=== PATIENT | male | born 1970 | race Caucasian/White ===

== ENCOUNTER 2019-01-11 16:24 | Emergency (ER) | payer OTHER ==
[2019-01-11 16:29] VITALS: BP 142/99; PULSE 98; TEMP 98.2; BMI 25.8
[2019-01-11] MEDS ORDERED: DIPHTH,PERTUSS(ACELL),TET 0.5 ML DISP.SYRIN IM ONE ×2 (17:12→17:56)
--- NOTE | 2019-01-11 17:59 | PDOC ---
History of Present Illness - General Chief Complaint: Laceration Stated Complaint: INJURY Time Seen by Provider: 01/11/19 16:46 History Source: Patient (L knee laceration) Exam Limitations: No Limitations - History of Present Illness Location: reports: extremities (R lateral knee) Past History - Travel Close contact w/someone who was outside of country & ill: No - Past Medical History Allergies/Adverse Reactions: Allergies Allergy/AdvReac Type Severity Reaction Status Date / Time No Known Allergies Allergy Verified 01/11/19 16:27 Home Medications: Ambulatory Orders Cephalexin Monohydrate [Keflex -] 500 mg PO BID 7 Days #14 capsule 01/11/19 COPD: No - Immunization History Immunization Up to Date: Yes - Psycho Social/Smoking Cessation Hx Smoking History: Never smoked Review of Systems - Review of Systems Constitutional: No: Chills, Fever Integumentary: Yes: Other (laceration to lateral left knee) *Physical Exam - Vital Signs Last Vital Signs Temp Pulse Resp BP Pulse Ox 98.2 F 98 H 18 142/99 98 01/11/19 16:28 01/11/19 16:28 01/11/19 16:28 01/11/19 16:28 01/11/19 16:28 - Physical Exam Comments: 01/11/19 18:09 48 years old male with lateral right knee laceration sustained while using a key sander fixing the floors this this afternoon. Patient is unsure of last tetanus he denies any medical problems. On examination there is a 4 cm laceration in the lateral aspect of right knee he has full range of motion. Wound explore there is no sign of tendon involvement there is no foreign body there is no active bleeding his sensation is intact his distal pulses intact. Laceration closed with 4.0 nylon stitiches, 9 interuppted stitches was placed abx sent to pharmacy tetanus updated General Appearance: Yes: Nourished, Appropriately Dressed Respiratory/Chest: positive: Lungs Clear, Normal Breath Sounds Cardiovascular: positive: Regular Rhythm, Regular Rate, S1, S2 Extremity: positive: Normal Capillary Refill, Normal Range of Motion, Other (R knee: + 4cm linear lacaeration noted in lateral knee, FROM, no evidence of tendon involvment, stable gait, distal pulse and sensation intact. 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 NML intact, Fully Oriented, Alert, Normal Mood/ Affect, Normal Response, Motor Strength 5/5 Procedures - Laceration/Wound Repair Right Lower Lateral Knee Wound Length: 2.6 to 5.0 cm Wound Explored: clean, no foreign body present Wound's Depth, Shape: superficial Irrigated w/ Saline: Yes Betadine Prep: Yes Anesthesia: 2% Lidocaine Wound Repaired With: Sutures Number of Sutures: 9 Deep Layer Suture Size/Type: 4:0 Sterile Dressing Applied: Yes Splint Applied: No Medical Decision Making - Medical Decision Making 01/11/19 17:55 R lateral knee laceration sustained while fixing floors 4cm linear lac unsure of tetanus lac repaired abx 01/11/19 18:14 Discharge - Discharge Information Problems reviewed: Yes Clinical Impression/Diagnosis: Laceration Condition: Stable Disposition: HOME - Admission No - Additional Discharge Information Prescriptions: Cephalexin Monohydrate [Keflex -] 500 mg PO BID 7 Days #14 capsule Prescription Drug Monitoring Program (I-STOP) results: I-STOP not reviewed - Follow up/Referral - Patient Discharge Instructions Patient Printed Discharge Instructions: DI for Laceration Repair, DI for Suture Removal Additional Instructions: Please keep area dry suture should be removed in 10 days Take antibiotics as prescribed Return to the ER if worsening or redness - Post Discharge Activity
== END 2019-01-11 18:17 | disposition home or self-care (01) ==
LOC: JERFT 16:24
PROC: 3E0234Z Introduction of Serum, Toxoid and Vaccine into Muscle, Percutaneous Approach (ICD-10-PCS; principal; 2019-01-11)
PROC: 0JQN0ZZ Repair Right Lower Leg Subcutaneous Tissue and Fascia, Open Approach (ICD-10-PCS; 2019-01-11)
DX: S81.011A Laceration without foreign body, right knee, initial encounter (principal); W31.2XXA Contact with powered woodworking and forming machines, initial encounter; Y93.89 Activity, other specified; Y92.89 Other specified places as the place of occurrence of the external cause; Y99.8 Other external cause status
CPT/HCPCS: 90715; 99282-25